=== PATIENT | male | born 2005 | race Two or more races ===

== ENCOUNTER 2025-05-17 09:08 | Emergency (ER) | payer OTHER, SELFPAY ==
[2025-05-17 09:22] VITALS: BP 140/73; PULSE 58; RESP 18; TEMP 36.8; O2SAT 100; BMI 21.2
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
[2025-05-17] MEDS: DIAZEPAM 5 MG TABLET PO (09:59)
[2025-05-17] MEDS: KETOROLAC INJ 30 MG/ML VIAL IM (10:00)
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
== END 2025-05-17 11:56 | disposition home or self-care (01) ==
PROVIDERS: Emergency Provider Family Medicine
DX: M54.6 Pain in thoracic spine (principal); V43.52XA Car driver injured in collision with other type car in traffic accident, initial encounter; Y92.410 Unspecified street and highway as the place of occurrence of the external cause
CPT/HCPCS: 71046; 96372; 99283; J1885; A9270